=== PATIENT | male | born 2000 | race Caucasian/White ===

== ENCOUNTER 2023-10-10 02:21 | Emergency (ER) | payer OTHER ==
[~2023-10-10] VITALS: Ht 175.3 cm; Wt 104.3 kg
[2023-10-10 02:25] VITALS: BP 146/84; PULSE 100; RESP 17; TEMP 98.3; O2SAT 98
[2023-10-10] MEDS ORDERED: DICL100G32 TP (03:30)
[2023-10-10] MEDS ORDERED: CYCL-711 PO (03:30)
[2023-10-10] MEDS ORDERED: IBUP-1842 PO (03:30)
[2023-10-10 03:38] VITALS: BP 146/84; PULSE 100; RESP 17; TEMP 98.3; O2SAT 98
== END 2023-10-10 03:38 | disposition home or self-care (01) ==
LOC: MED 02:21
DX: M79.675 Pain in left toe(s) (principal); V49.88XA Car occupant (driver) (passenger) injured in other specified transport accidents, initial encounter; Y93.89 Activity, other specified; Y92.89 Other specified places as the place of occurrence of the external cause; Y99.8 Other external cause status
CPT/HCPCS: 73660; 99283